=== PATIENT | male | born 1965 | race Caucasian/White ===

== ENCOUNTER → 2016-12-27 | Outpatient (CLI) | payer OTHER | END | disposition home or self-care (01) | LOC: LAB.O 13:32 | PROVIDERS: ATTEND Family Medicine | DX: R63.4 Abnormal weight loss (principal); E78.2 Mixed hyperlipidemia; E11.65 Type 2 diabetes mellitus with hyperglycemia ==

== ENCOUNTER → 2018-01-02 | Outpatient (CLI) | payer OTHER ==
--- NOTE | 2018-01-06 09:41 | RAD ---
EXAM DESCRIPTION: Pelvis CLINICAL HISTORY: HIP PAIN COMPARISON: January 16, 2010. Impression: Frontal view the pelvis. Since comparison, the patient has undergone reduction of the pubic symphysis diastases with compression plate and transfixing screws. No hardware loosening or failure is demonstrated. There is increased nonspecific sclerosis of the bone surrounding the hardware which may reflect chronic stress. Pelvic ring is otherwise intact. SI joints and sacral struts are maintained. Electronically signed by: Brennan Braswell MD 01/06/2018 9:39 AM CDT
--- NOTE | 2018-01-06 09:42 | RAD ---
EXAM DESCRIPTION: Hip,Right 2 Views CLINICAL HISTORY: HIP PAIN COMPARISON: None IMPRESSION: 2 views of the right hip. No acute fracture, dislocation or aggressive bone lesion is demonstrated within the right hip. No advanced osteoarthritis is present. If symptoms persist despite conservative management, consider MR arthrogram for further evaluation. Electronically signed by: Brennan Braswell MD 01/06/2018 9:41 AM CDT
== END ==
LOC: RAD 12:42
PROVIDERS: ATTEND Family Medicine
DX: M25.551 Pain in right hip (principal)

== ENCOUNTER 2018-04-03 07:18 | Inpatient (IN) | payer SELFPAY ==
[2018-04-03] MEDS ORDERED: SODIUM CHLORIDE 0.9% 1000ML 1,000 ML IVS ONE ×3 (07:35→15:31)
[2018-04-03] MEDS ORDERED: ONDANSETRON ODT 8 MG TAB SL ONE (07:35)
[2018-04-03] MEDS ORDERED: PROMETHAZINE HCL INJ 12.5 MG in SODIUM CHLORIDE 0.9% 50ML 50 ML IVPB ONE (07:35)
[2018-04-03] MEDS ORDERED: ONDANSETRON ODT (ER DISP) 8 MG TAB PO ONE (07:37)
[2018-04-03] MEDS ORDERED: SODIUM CHLORIDE 0.9% 50ML 50 ML ONE (07:39)
[2018-04-03] MEDS ORDERED: PROMETHAZINE HCL INJ 25 MG/ML VIAL ONE (07:39)
--- NOTE | 2018-04-03 08:05 | RAD ---
EXAM DESCRIPTION: Abdomen Series CLINICAL HISTORY: 52 years Male, nv, wt loss COMPARISON: None. TECHNIQUE: Supine and upright views abdomen, AP chest FINDINGS: Relative paucity of bowel gas. No specific evidence of intestinal obstruction. No free air is seen. No pathological calcifications identified. Nonspecific pleural-parenchymal changes right lung base, stable compared with October 16, 2012 chest computed tomography. IMPRESSION: Nonspecific bowel gas pattern. Nonspecific pleural-parenchymal changes right lung base Electronically signed by: Naman Garrido 04/03/2018 8:03 AM PRINTING SERVICES COORDINATOR
[2018-04-03] MEDS ORDERED: INSULIN, REG.(HUMAN) 100 U/ML VIAL IV ONE (08:24)
[2018-04-03] MEDS ORDERED: SODIUM CHL 0.9% 250ML (AVIVA) 250 ML IVPB ONE ×2 (08:33→20:52)
[2018-04-03] MEDS: INSULIN, REG.(HUMAN) 250 UNITS in SODIUM CHL 0.9% 250ML (AVIVA) 247.5 ML IVPB SCH ×4 (08:46→20:57)
[2018-04-03] MEDS ORDERED: SODIUM BICARBONATE SYRINGE 50 MEQ/50 ML SYG IV ONE ×2 (09:29→09:54)
[2018-04-03] MEDS ORDERED: INSULIN, REG.(HUMAN) 100 U/ML VIAL ONE ×2 (10:46→20:52)
[2018-04-03] MEDS ORDERED: DEX 5% W/NACL 0.45% 1000ML 1,000 ML IVS PRN (11:16)
--- NOTE | 2018-04-03 13:07 | ED.PDOC ---
History of Present Illness - General Chief Complaint: GI Problem Stated Complaint: vomiting Time Seen by Provider: 04/03/18 07:19 Source: patient Exam Limitations: no limitations - History of Present Illness Initial Comments: the patient is a 52-year-old male presenting to the emergency room essentially secondary to 24 hours of nausea and vomiting. On further questioning he has had significant weight loss of approximately 10 pounds over the last week. He has apparently not been taking his insulin for the last 3 or 4 days due to not having needles. No chest pain. He is pale. He is weak. He is alert and oriented however. He is ambulatory. No blood or bile in the vomitus. No abdominal pain just generalized cramping Timing/Duration: unsure Severity: severe Improving Factors: nothing Worsening Factors: nothing Associated Symptoms: loss of appetite, malaise, nausea/vomiting, weakness Allergies/Adverse Reactions: Allergies NO KNOWN ALLERGY Allergy (Verified 06/25/12 12:36) Home Medications: Ambulatory Orders Nortriptyline HCl 25 mg PO DAILY 06/09/12 Omeprazole [Prilosec] 40 mg PO BID 06/09/12 Tamsulosin [Flomax] 0.4 mg PO QD 06/09/12 Fluticasone-Salmeterol [Advair Diskus] 1 puff IN BID 06/10/12 Sitagliptin-Metformin HCl [Janumet 50-1000 mg] 1 tab PO BID 08/25/14 Naproxen Sodium [Anaprox Ds] 550 mg PO PRN 04/03/18 Review of Systems - Review of Systems Constitutional: States: malaise, weakness EENTM: States: no symptoms reported Respiratory: States: no symptoms reported Cardiology: States: no symptoms reported Gastrointestinal/Abdominal: States: nausea, vomiting Genitourinary: States: no symptoms reported Musculoskeletal: States: muscle stiffness Skin: States: no symptoms reported Neurological: States: headache Endocrine: States: increased urine, unexplained weight loss All other Systems: No Change from Baseline Past Medical History (General) - Patient Medical History Hx Seizures: No Hx Stroke: No Hx Asthma: Yes Hx of COPD: No Hx Cardiac Disorders: No Hx Congestive Heart Failure: No Hx Pacemaker: No Hx Hypertension: Yes Hx Diabetes: Yes Hx MRSA: No Surgical History: appendectomy - Vaccination History Hx Influenza Vaccination: No Hx Pneumococcal Vaccination: No - Social History Hx Tobacco Use: Yes Hx Alcohol Use: No Hx Substance Use: No Hx Physical Abuse: No Hx Emotional Abuse: No Family Medical History - Family History Father Family History: No Known Living Status: Still Living Physical Exam - Physical Exam General Appearance: Alert, Frail, Ill Appearing Eye Exam: bilateral normal Ears, Nose, Throat: hearing grossly normal, normal ENT inspection, normal pharynx - mucous membranes are fairly dry Neck: non-tender, full range of motion, supple Respiratory: lungs clear, normal breath sounds, no respiratory distress, no accessory muscle use Cardiovascular/Chest: normal peripheral pulses, regular rate, rhythm, no edema Peripheral Pulses: radial,right: 2+, radial,left: 2+ Gastrointestinal/Abdominal: non tender, soft Rectal Exam: deferred Back Exam: normal inspection, no CVA tenderness Neurologic: sand miller II-XII nml as tested, alert, oriented x 3 Skin Exam: pallor Comments: Vital Signs - 24 hr 04/03/18 04/03/18 04/03/18 07:25 08:54 10:00 Temperature 96.9 F L Pulse Rate [ 100 H 100 H 90 Left Brachial] Respiratory 18 20 16 Rate Blood Pressure 140/80 148/79 122/83 [Left Arm] O2 Sat by Pulse 100 100 99 Oximetry 04/03/18 04/03/18 11:00 12:00 Temperature Pulse Rate [ 98 H 100 H Left Brachial] Respiratory 16 16 Rate Blood Pressure 141/78 134/88 [Left Arm] O2 Sat by Pulse 100 100 Oximetry Progress - Progress Progress: 04/03/18 13:09 the patient is a 52-year-old male presenting to emergency room secondary to what appears to be DKA with significant dehydration. The patient has been started on insulin drip after a bolus. His blood sugars are improving. Patient had a significant anion gap as well as a pH of 7.06 upon arrival. He has received around 3 L of IV fluids and antibiotics. He is feeling and looking much better. PH is back up to 7.25. Anion gap is closing. The patient will be admitted for further continued management of his DKA. He has not thrown up since his arrival. Continue GI medications. Critical care time spent on management of DKA and discussion with the patient on his plan of care as well as arranging for further care is 40 minutes - Results/Orders Results/Orders: 04/03/18 08:30 Insulin, Reg.(Human) [HumuLIN R] 250 units Sodium Chl 0.9% 250Ml (Lulu) [NS 250ml (LULU)] 247.5 ml IVPB Q12H 04/03/18 09:10 URINE CULTURE W/COLONY COUNT Stat 04/03/18 11:16 Dex 5% W/NaCl 0.45% 1000ML [D5 1/2NS 1000ml] 1,000 ml IVS .QD Laboratory Results - last 24 hr 04/03/18 04/03/18 04/03/18 07:43 07:43 07:43 WBC 14.3 H RBC 5.93 Hgb 17.7 Hct 54.3 H MCV 91.6 MCH 29.8 MCHC 32.5 L RDW 13.8 Plt Count 315 MPV 8.3 Absolute Neuts (auto) 12.60 H Absolute Lymphs (auto) 1.20 Absolute Monos (auto) 0.40 Absolute Eos (auto) 0.00 Absolute Basos (auto) 0.10 Neutrophils % 88.2 H Lymphocytes % 8.7 L Monocytes % 2.6 Eosinophils % 0.0 L Basophils % 0.5 D-Dimer, Quantitative 0.43 pCO2 pO2 HCO3 ABG pH ABG O2 Saturation ABG Base Excess ABG Deoxyhemoglobin Oxyhemoglobin % Carboxyhemoglobin % Methemoglobin % Sat Calc Total Hemoglobin Sodium 131 L Potassium 6.1 H Chloride 99 L Carbon Dioxide 10 L* Anion Gap 28.1 H BUN 22 H Creatinine 1.20 BUN/Creatinine Ratio 18.3 POC Glucose Random Glucose 464 H* Serum Osmolality 285.6 Lactic Acid Calcium 9.5 Magnesium 2.3 Total Bilirubin 0.9 AST 16 ALT 23 Alkaline Phosphatase 106 Creatine Kinase 112 CK-MB (CK-2) 3.2 CK-MB (CK-2) % Not Reportable Troponin I < 0.02 B-Natriuretic Peptide < 0.5 Serum Total Protein 9.1 H Albumin 5.5 Globulin 3.6 H Albumin/Globulin Ratio 1.5 Amylase 16 L Lipase 15 L TSH 0.18 L Urine Color Urine Appearance Urine pH Ur Specific Orange Urine Protein Urine Glucose (UA) Urine Ketones Urine Blood Urine Nitrite Urine Bilirubin Urine Urobilinogen Ur Leukocyte Esterase Urine RBC Ur Epithelial Cells Amorphous Sediment Urine Bacteria Urine Opiates Screen Urine Barbiturates Ur Phencyclidine Scrn U Amphetamin/Meth Scrn U Benzodiazepines Scrn U Cocaine Metab Screen U Cannabinoids Screen 04/03/18 04/03/18 04/03/18 07:43 09:10 09:10 WBC RBC Hgb Hct MCV MCH MCHC RDW Plt Count MPV Absolute Neuts (auto) Absolute Lymphs (auto) Absolute Monos (auto) Absolute Eos (auto) Absolute Basos (auto) Neutrophils % Lymphocytes % Monocytes % Eosinophils % Basophils % D-Dimer, Quantitative pCO2 21 L pO2 132 H* HCO3 5.7 ABG pH 7.060 L* ABG O2 Saturation 97.9 ABG Base Excess -24.8 ABG Deoxyhemoglobin 2.0 Oxyhemoglobin % 95.5 Carboxyhemoglobin % 0.5 Methemoglobin % Sat 2.0 H Calc Total Hemoglobin 16.2 Sodium Potassium Chloride Carbon Dioxide Anion Gap BUN Creatinine BUN/Creatinine Ratio POC Glucose Random Glucose Serum Osmolality Lactic Acid 1.6 Calcium Magnesium Total Bilirubin AST ALT Alkaline Phosphatase Creatine Kinase CK-MB (CK-2) CK-MB (CK-2) % Troponin I B-Natriuretic Peptide Serum Total Protein Albumin Globulin Albumin/Globulin Ratio Amylase Lipase TSH Urine Color Urine Appearance Urine pH Ur Specific Orange Urine Protein Urine Glucose (UA) Urine Ketones Urine Blood Urine Nitrite Urine Bilirubin Urine Urobilinogen Ur Leukocyte Esterase Urine RBC Ur Epithelial Cells Amorphous Sediment Urine Bacteria Urine Opiates Screen Negative Urine Barbiturates Negative Ur Phencyclidine Scrn Negative U Amphetamin/Meth Scrn Negative U Benzodiazepines Scrn Negative U Cocaine Metab Screen Negative U Cannabinoids Screen Negative 04/03/18 04/03/18 04/03/18 09:10 10:00 11:05 WBC RBC Hgb Hct MCV MCH MCHC RDW Plt Count MPV Absolute Neuts (auto) Absolute Lymphs (auto) Absolute Monos (auto) Absolute Eos (auto) Absolute Basos (auto) Neutrophils % Lymphocytes % Monocytes % Eosinophils % Basophils % D-Dimer, Quantitative pCO2 pO2 HCO3 ABG pH ABG O2 Saturation ABG Base Excess ABG Deoxyhemoglobin Oxyhemoglobin % Carboxyhemoglobin % Methemoglobin % Sat Calc Total Hemoglobin Sodium Potassium Chloride Carbon Dioxide Anion Gap BUN Creatinine BUN/Creatinine Ratio POC Glucose 328 H 235 H Random Glucose Serum Osmolality Lactic Acid Calcium Magnesium Total Bilirubin AST ALT Alkaline Phosphatase Creatine Kinase CK-MB (CK-2) CK-MB (CK-2) % Troponin I B-Natriuretic Peptide Serum Total Protein Albumin Globulin Albumin/Globulin Ratio Amylase Lipase TSH Urine Color Yellow Urine Appearance Clear Urine pH 5.0 Ur Specific Orange 1.025 Urine Protein 30 Urine Glucose (UA) 500 H Urine Ketones >=160 Urine Blood Small H Urine Nitrite Negative Urine Bilirubin Negative Urine Urobilinogen 0.2 Ur Leukocyte Esterase Negative Urine RBC 0-1 Ur Epithelial Cells 0-1 Amorphous Sediment 1+ Urine Bacteria 0 Urine Opiates Screen Urine Barbiturates Ur Phencyclidine Scrn U Amphetamin/Meth Scrn U Benzodiazepines Scrn U Cocaine Metab Screen U Cannabinoids Screen 04/03/18 04/03/18 04/03/18 12:05 12:05 12:15 WBC RBC Hgb Hct MCV MCH MCHC RDW Plt Count MPV Absolute Neuts (auto) Absolute Lymphs (auto) Absolute Monos (auto) Absolute Eos (auto) Absolute Basos (auto) Neutrophils % Lymphocytes % Monocytes % Eosinophils % Basophils % D-Dimer, Quantitative pCO2 25 L pO2 101 HCO3 10.6 ABG pH 7.250 L* ABG O2 Saturation 97.9 ABG Base Excess -15.1 ABG Deoxyhemoglobin 2.1 Oxyhemoglobin % 95.6 Carboxyhemoglobin % 0.1 L Methemoglobin % Sat 2.3 H Calc Total Hemoglobin 14.7 Sodium 136 Potassium 4.5 Chloride 106 Carbon Dioxide 16 L D Anion Gap 18.5 H BUN 20 H Creatinine 1.11 BUN/Creatinine Ratio 18.0 POC Glucose 262 H Random Glucose 272 H D Serum Osmolality 284.2 Lactic Acid Calcium 8.8 Magnesium Total Bilirubin AST ALT Alkaline Phosphatase Creatine Kinase CK-MB (CK-2) CK-MB (CK-2) % Troponin I B-Natriuretic Peptide Serum Total Protein Albumin Globulin Albumin/Globulin Ratio Amylase Lipase TSH Urine Color Urine Appearance Urine pH Ur Specific Orange Urine Protein Urine Glucose (UA) Urine Ketones Urine Blood Urine Nitrite Urine Bilirubin Urine Urobilinogen Ur Leukocyte Esterase Urine RBC Ur Epithelial Cells Amorphous Sediment Urine Bacteria Urine Opiates Screen Urine Barbiturates Ur Phencyclidine Scrn U Amphetamin/Meth Scrn U Benzodiazepines Scrn U Cocaine Metab Screen U Cannabinoids Screen acute abdominal series shows no free air, no significant infiltrate and no obstruction. Departure - Departure Clinical Impression: Diabetic ketoacidosis Qualifiers: Diabetes mellitus type: type 1 Diabetes mellitus complication detail: without coma Qualified Code(s): E10.10 - Type 1 diabetes mellitus with ketoacidosis without coma Disposition: Admit Patient Departure Forms: ED Discharge - Pt. Copy, Patient Portal Self Enrollment Referrals: Arsalan Pak MD [Primary Care Provider] - 1-2 Weeks Home Medications: Ambulatory Orders Nortriptyline HCl 25 mg PO DAILY 06/09/12 Omeprazole [Prilosec] 40 mg PO BID 06/09/12 Tamsulosin [Flomax] 0.4 mg PO QD 06/09/12 Fluticasone-Salmeterol [Advair Diskus] 1 puff IN BID 06/10/12 Sitagliptin-Metformin HCl [Janumet 50-1000 mg] 1 tab PO BID 08/25/14 Naproxen Sodium [Anaprox Ds] 550 mg PO PRN 04/03/18 Decision To Admit - Decistion To Admit Decision to Admit Reason: Medical Nature Decision to Admit Date: 04/03/18 Decision to Admit Time: 13:11
--- NOTE | 2018-04-03 13:21 | HP ---
SUPERVISING PHYSICIAN: Arsalan Pak M.D. CHIEF COMPLAINT: Vomiting. HISTORY OF PRESENT ILLNESS: Mr. Dennison is a 52 year-old male patient that presented to the Emergency Room due to 24 hours of persistent nausea and vomiting. He noted over the last week he started having some nausea but yesterday essentially started having some vomiting nearly every hour and over that same week had lost about 10 pounds. He is a type 2 diabetic insulin requiring and normally is on Toujeo. He apparently had run out of needles for his Toujeo injections 4 days previously. He denied any chest pains, abdominal pains or generalized cramping. Initial workup in the E. R. showed that he had a blood sugar of 464 with potassium 6.1 and carbon dioxide 10 with anion gap of 28.1. Sodium was 131 but corrected to 135 for hyperglycemia. Liver functions all showed to be within normal limits. Lipase and amylase were both normal. TSH was low. Blood gas analysis showed pH of 7.06 initially with pCO2 of 21, pO2 of 132 and bicarb of 5.7 with base excess of 24.8. He was started on DKA protocol with insulin drip and fluids, and 4 hours post initiation of protocol pH was rechecked and his pH was up to 7.25 with pCO2 of 25 and anion gap had decreased to -15.1. The patient is now going to be admitted to the Medical/ Surgical floor for further treatment of diabetic ketoacidosis on insulin drip. He was admitted in stable condition. PAST MEDICAL HISTORY: 1. Type 2 diabetes, insulin requiring, diagnosed in 2010 currently taking Toujeo. 2. Hypertension first diagnosed in 2010. 3. Gastroesophageal reflux disease. 4. Benign prostatic hypertrophy. PAST SURGICAL HISTORY: 1. Repair of orbital fracture. 2. Ankle reconstructions times 3. 3. Two shoulder surgeries. 4. Thoracostomy. 5. Appendectomy. 6. Vasectomy. CURRENT MEDICATIONS: 1. Toujeo solostar 35 units at bedtime. 2. Avodart 0.5 mg at bedtime. 3. Spiriva handihaler 1 puff at bedtime. 4. Flomax 0.4 mg at bedtime. 5. Janumet 50-1,000 mg 1 tablet b.i.d. 6. Prilosec 40 mg b.i.d. 7. Nortriptyline 25 mg daily. 8. Anaprox 550 mg as needed. ALLERGIES: NO KNOWN DRUG ALLERGIES. FAMILY HISTORY: No history of type 1 diabetes or any significant autoimmune disease. SOCIAL HISTORY: REVIEW OF SYSTEMS: CONSTITUTIONAL: Positive for generalized fatigue and malaise. Denies any night sweats and has had an unintentional weight loss of over 10 pounds in the last week. HEENT: Denies any head congestion, sore throat, ear aches. CARDIOVASCULAR: Denies any chest pains, palpitations. PULMONARY: No shortness of breath, coughing or wheezing. GASTROINTESTINAL: As noted in history of present illness, has had nausea and persistent vomiting in the last 24 hours with no reported epigastric pain or real abdominal pains and any significant changes in bowel habits. GENITOURINARY: Denies any dysuria or hematuria but has had some polyuria over the last 4 days. NEUROLOGIC: Does have a headache but denies any dizziness, syncopal episodes, ataxia or seizures. HEMATOLOGIC: Denies any bleeding tendencies or easy bruising. PHYSICAL EXAMINATION: VITAL SIGNS: Temperature 96.9, pulse 100, blood pressure 140/80, respirations 18, satting 100% on room air. Admission weight 67.9 kg. GENERAL: The patient appears to be in no acute distress. He is alert and awake. Does look dehydrated and very thin. HEENT: Tympanic membranes are clear bilaterally. Oropharynx is pink with mucosal membranes being dry. No lesions noted. NECK: Supple, non-tender with full range of motion. No jugular venous distention. No adenopathy. CHEST: Lungs are clear to auscultation bilaterally without any rhonchi, wheezing or rales. CARDIOVASCULAR: Regular rate and rhythm without appreciable murmurs, gallops, or rubs. ABDOMEN: Soft, non-tender. Positive bowel sounds. EXTREMITIES: Without any clubbing, cyanosis or edema. NEUROLOGIC: He was alert and oriented times three. Cranial nerves II-XII are grossly intact. Facial features were symmetrical. Extraocular movements are within normal limits. There is no notable nystagmus. No focal motor or sensory deficits noted. LABORATORY: CBC on admission showed white count of 14,300 with hemoglobin 17.7 , hematocrit 54.3, platelet count 315,000. Differential did show a left shift but no bands. Coagulation studies showed a normal D-dimer. Blood gas analysis initially showed a pH of 7.06 with pCO2 of 21, bicarb of 5.7 and base excess of -24.8. After initial initiation of treatment with DKA protocol, a repeat of blood gas analysis 4 hours post treatment pH was at 7.25 with pCO2 of 25, pO2 was 101, bicarb of 10.6 with base excess of -15.1. Chemistries initially on admission showed sodium 131, corrected for glucose of 464 was 135, potassium 6.1 ,chloride 99, carbon dioxide 10, anion gap 20.1, BUN 22, creatinine 1.20. Liver functions all showed to be within normal limits. Troponin was less than 0.02. BNP was less than 0.5 and magnesium 2.3, lactic acid 1.6. Amylase and lipase were both normal. TSH was low at 0.18. Repeat labs after initiation of treatment at 4 hours showed sodium 136, glucose 272, potassium 4.5, carbon dioxide had increased to 16, anion gap was down to 18.5 with BUN 20, creatinine 1.11. Urinalysis showed 500 glucose, greater than 160 of ketones, small amount of blood, otherwise within normal limits. Toxicology screen showed all negative on urine on substances tested. Serum ketones on admission to the floor were showing to be small. MICROBIOLOGY: Urine culture was pending. RADIOLOGY: Abdominal x-ray in the E. R. prior to admission showed nonspecific bowel gas pattern. No specific pleural or parenchymal changes in the lung bases. ASSESSMENT: 1. Type 1.5 diabetes mellitus with ketoacidosis secondary to poor compliance with medication regimen and complicated by recent episode of persistent nausea and vomiting. 2. Severe dehydration secondary to #1. PLAN: The patient is going to be admitted to the Medical/Surgical floor and started on diabetic ketoacidosis protocol with insulin drip. Once he has shown to resolve DKA and no longer producing ketones and anion gap is closed, will work to start him on subcue insulin and get him off insulin drip and transition to p.o. intake. Will anticipate his length of stay to be at least 2 to 3 days. Will closely monitor his output and provide him adequate fluid resuscitation. Resume his home medication with long-acting insulin including his Toujeo once we get him off insulin drip. Until he can transition to outpatient management will continue to monitor closely and treat as needed. [id number] [facility]
[2018-04-03] MEDS ORDERED: ONDANSETRON INJ 4 MG/2 ML VIAL IV PRN (13:50)
[2018-04-03] MEDS ORDERED: SODIUM CHLORIDE 0.9% (FLUSH) 10 ML SYG IV PRN (13:50)
[2018-04-03] MEDS ORDERED: IV SET AND CAP CHANGE INJ INJ SCH (14:00)
[2018-04-03] MEDS ORDERED: KCL 20MEQ/0.45% NS 1,000 ML IVS ONE (15:13)
[2018-04-03] MEDS: KCL 20MEQ/0.45% NS 1,000 ML IVS PRN ×2 (15:14→20:48)
[2018-04-03] MEDS ORDERED: SODIUM CHLORIDE 0.9% 1000ML 1,000 ML ONE (15:28)
[2018-04-03] MEDS ORDERED: ACETAMINOPHEN 325 MG TAB PO PRN (15:50)
[2018-04-03] MEDS ORDERED: KCL 20MEQ/D5NS 1,000 ML IVS ONE ×2 (16:57→17:05)
[2018-04-03] MEDS ORDERED: KETOROLAC TROMETHAMINE INJ 30 MG/ML VIAL IV ONE (18:10)
[2018-04-03] MEDS ORDERED: INSULIN GLARGINE 35 UNIT SC SCH ×2 (18:15→19:15)
[2018-04-03] MEDS: NORTRIPTYLINE HCL 25 MG CAP PO SCH (18:43)
[2018-04-03] MEDS ORDERED: NICOTINE PATCH 14 MG TD PRN (18:46)
[2018-04-03] MEDS ORDERED: INSULIN LISPRO 100 UNITS/ML PEN SUBCU ONE (19:09)
[2018-04-03] MEDS ORDERED: OMEPRAZOLE CAP 20 MG CAP ONE (19:31)
[2018-04-03] MEDS ORDERED: ENOXAPARIN SODIUM 40 MG/0.4 ML SYG SUBCU SCH (21:00)
[2018-04-03] MEDS ORDERED: NON-FORMULARY MEDICATION 1 EA MIS (Tiotropium Bromide Monohydrate [Spiriva Handihaler] 1 P IN SCH (21:00)
[2018-04-03] MEDS ORDERED: OMEPRAZOLE 40 MG PO SCH (21:00)
[2018-04-03] MEDS ORDERED: DUTASTERIDE 0.5 MG CAP PO SCH (21:00)
[2018-04-03] MEDS ORDERED: TAMSULOSIN 0.4 MG CAP PO SCH (21:00)
[2018-04-03] MEDS ORDERED: DEXTROSE 50% 25 GM/50 ML SYG IV PRN (21:15)
[2018-04-03] MEDS ORDERED: GLUCAGON INJ 1 MG VIAL SUBCU PRN (21:15)
[2018-04-04] MEDS: KCL 20MEQ/0.45% NS 1,000 ML IVS PRN (02:11)
[2018-04-04 06:02] VITALS: BP 116/74; TEMP 98.4; O2SAT 97
[2018-04-04] MEDS ORDERED: INSULIN LISPRO 100 UNITS/ML PEN SUBCU SCH (07:00)
[2018-04-04] MEDS ORDERED: OMEPRAZOLE CAP 20 MG CAP ONE (07:18)
[2018-04-04] MEDS ORDERED: OMEPRAZOLE CAP 20 MG CAP PO SCH (08:30)
[2018-04-04] MEDS: NORTRIPTYLINE HCL 25 MG CAP PO SCH (08:40)
[2018-04-04] MEDS: metFORMIN HCL 500 MG TAB PO SCH ×2 (08:43→09:00)
[2018-04-04] MEDS ORDERED: SITagliptin 50 MG TAB PO SCH (09:00)
--- NOTE | 2018-04-05 11:20 | DS ---
ADMISSION DIAGNOSIS: 1. Type 1.5 diabetes mellitus with ketoacidosis secondary to poor compliance with medication regimen and complicated by recent episode of persistent nausea and vomiting. 2. Severe dehydration secondary to #1. DISCHARGE DIAGNOSIS: 1. Type 1.5 diabetes mellitus with ketoacidosis secondary to poor compliance with medication regimen and complicated by recent episode of persistent nausea and vomiting, resolved after treatment, aggressive DK protocol. 2. Severe dehydration secondary to #1, resolved with treatment. REASON FOR HOSPITALIZATION: Mr. Dennison is a 52 year-old male patient that presented to the Emergency Room due to 24 hours of persistent nausea and vomiting. He noted over the last week he started having some nausea but yesterday essentially started having some vomiting nearly every hour and over that same week had lost about 10 pounds. He is a type 2 diabetic insulin requiring and normally is on Toujeo. He apparently had run out of needles for his Toujeo injections 4 days previously. He denied any chest pains, abdominal pains or generalized cramping. Initial workup in the E. R. showed that he had a blood sugar of 464 with potassium 6.1 and carbon dioxide 10 with anion gap of 28.1. Sodium was 131 but corrected to 135 for hyperglycemia. Liver functions all showed to be within normal limits. Lipase and amylase were both normal. TSH was low. Blood gas analysis showed pH of 7.06 initially with pCO2 of 21, pO2 of 132 and bicarb of 5.7 with base excess of 24.8. He was started on DKA protocol with insulin drip and fluids, and 4 hours post initiation of protocol pH was rechecked and his pH was up to 7.25 with pCO2 of 25 and anion gap had decreased to -15.1. The patient is now going to be admitted to the Medical/ Surgical floor for further treatment of diabetic ketoacidosis on insulin drip. He was admitted in stable condition.] LABORATORY: Admitting chemistry showed he had initial blood sugar or 464 with potassium of 6.1, sodium 131, anion gap 28.1 with carbon dioxide of 10. Liver functions all showed to be within normal limits. TSH was low at 0.18 but lipase and amylase were both normal. Blood gas analysis did show a pH initially of 7.060. After 4 hours of treatment in the Emergency Room and prior to admission to the medical/surgical floor, the pH had gone up to 7.25 with initial pO2 of 21, bicarb of 5.7 and base excess of negative 24.8 with treatment. After 4 hours bicarb was at 10.6, PC02 was 25, base excess was down to negative 15.1. After initiation of treatment with DK protocol it did resolve and his DKA was no longer producing ketones, his blood sugars had been better controlled, we stopped the insulin drip and his blood sugars remained 12 hours prior to discharge between 95 and 286. On discharge his chemistries showed a sodium of 134 with glucose of 297 corrected to 135. BUN 15, creatinine 0.93, no longer producing ketones. Urinalysis showed 500 glucose, greater than 160 ketones, small amount of blood, otherwise within normal limits on initial presentation of urine in the Emergency Room. Urine drug screen showed to be all negative as tested. She had a small amount of ketones at 2800 , after initiation of treatment he was no longer producing serum ketones. His coagulation studies showed he had a D-dimer of 0.43. MICROBIOLOGY: Urine culture was pending at discharge. RADIOLOGY: Abdominal x-ray per radiology interpretation was unremarkable in the Emergency Room. His EKG was showing normal sinus rhythm with no significant ST changes. HOSPITAL COURSE: Mr. Dennison was admitted on for DKA and treated with DKA protocol and showed a good response to treatment and was able to be discharged on the morning of 04/04/18. He was tolerating oral intake and back on his home medications including his insulin. He had no complications to treatment and was able to transition to outpatient management. PLAN: Mr. Dennison was discharged on 04/04/18 with instructions to followup with Dr. Pak the following week with close clinical followup. He resumed his home medications as previous to hospitalization. He was encouraged fluids to prevent dehydration. He was to utilize a diabetic diet and monitor is blood sugars on a regular basis. No new medications were prescribed at discharge. DISPOSITION: Patient was discharged to family members and condition on discharge was stable and improved. [facility][id number]
== END 2018-04-04 09:22 | disposition home or self-care (01) | DRG 639 ==
LOC: ER 07:18 → MS 13:20
PROVIDERS: ADMIT Nurse Practitioner Family; ATTEND Nurse Practitioner Family
DX: E11.10 Type 2 diabetes mellitus with ketoacidosis without coma (principal); I10 Essential (primary) hypertension; K21.9 Gastro-esophageal reflux disease without esophagitis; N40.0 Benign prostatic hyperplasia without lower urinary tract symptoms; E86.0 Dehydration; Z79.4 Long term (current) use of insulin; R11.2 Nausea with vomiting, unspecified; Z91.14 Patient's other noncompliance with medication regimen

== ENCOUNTER 2018-07-07 17:04 | Inpatient (IN) | payer SELFPAY ==
[2018-07-07] MEDS ORDERED: SODIUM CHLORIDE 0.9% 1000ML 1,000 ML IVS ONE (17:15)
[2018-07-07] MEDS ORDERED: PROMETHAZINE HCL INJ 25 MG in SODIUM CHLORIDE 0.9% 50ML 50 ML IVPB ONE ×2 (17:15→20:28)
[2018-07-07] MEDS ORDERED: SODIUM CHLORIDE 0.9% 50ML 50 ML ONE ×2 (17:17→20:29)
[2018-07-07] MEDS ORDERED: PROMETHAZINE HCL INJ 25 MG/ML VIAL ONE ×2 (17:17→20:29)
[2018-07-07] MEDS ORDERED: DEX 5% W/NACL 0.9% 1000ML 1,000 ML IVS ONE (17:26)
[2018-07-07] MEDS: ONDANSETRON ODT 8 MG TAB SL ONE ×2 (17:48→17:50)
[2018-07-07] MEDS ORDERED: ONDANSETRON INJ 4 MG/2 ML VIAL ONE (18:49)
--- NOTE | 2018-07-07 19:14 | RAD ---
EXAM DESCRIPTION: Abdomen Series CLINICAL HISTORY: nv COMPARISON: 04/03/2018 FINDINGS: Frontal view of the chest and supine and upright images of the abdomen were submitted. There is a small region of atelectasis again seen at the right lung base. Cardiac silhouette is within normal limits. There is no focal parenchymal consolidation or pleural disease. Surgical hardware is again seen at the lower pelvis. There is no free air in the abdomen. There is no evidence of bowel obstruction. IMPRESSION: No acute abnormalities. Electronically signed by: Neville Lee 07/07/2018 7:10 PM ELECTRIC BLANKET PACKER
[2018-07-07] MEDS ORDERED: ONDANSETRON INJ 4 MG/2 ML VIAL IV ONE (19:23)
--- NOTE | 2018-07-07 20:27 | CT ---
EXAM DESCRIPTION: Abdomen/Pelvis w/Contrast CLINICAL HISTORY: nv COMPARISON: None Available TECHNIQUE: Contiguous axial images of the abdomen and pelvis were obtained after the administration of intravenous contrast followed by reconstruction images.This exam was performed according to our departmental dose-optimization program, which includes automated exposure control, adjustment of the mA and/or kV according to patient size and/or use of iterative reconstruction technique. FINDINGS: Surgical hardware at the pubic symphysis and involving each pubis limits pelvic detail. There is high attenuation in the urinary bladder, which is nonspecific. Mass or thrombus are possible. Proteinaceous materials also possible. Correlation with urinalysis is recommended and follow-up ultrasound is recommended. There is mild thickening of the wall of multiple loops of small bowel in the right and midabdomen. This suggests inflammation. Ischemia or neoplasm are less likely but not excluded. There is apparent fatty infiltration of the pancreas. Pancreatic detail is limited. Pancreatitis or pancreatic neoplasm are not excluded. There is apparent edema of the wall of the distal stomach and mild dilatation of the proximal duodenum suggesting inflammation. This however is nonspecific. There is mild to moderate dilatation of the distal transverse colon and splenic flexure. There is atelectasis and scar at the right lung base. There is no hydronephrosis. The gallbladder is unremarkable. Adrenal glands are within normal limits. Aorta is normal in caliber and tapering. No significant free fluid. No free air. No bowel obstruction. IMPRESSION: Pancreatic detail is limited. Sonography is recommended for further evaluation. Possible inflammation of the small bowel. Nonspecific increased attenuation in the mid urinary bladder but detail is limited by streak artifact. Sonography is recommended for further evaluation. See additional findings above. Electronically signed by: Neville Lee 07/07/2018 8:24 PM SOCIETY REPORTER
[2018-07-07] MEDS ORDERED: PANTOPRAZOLE SODIUM IV 40 MG VIAL IV ONE (20:33)
[2018-07-07] MEDS ORDERED: INSULIN DETEMIR 100 UNITS/ML PEN SUBCU ONE (21:20)
[2018-07-07] MEDS ORDERED: PROCHLORPERAZINE INJ 10 MG/2 ML VIAL IV ONE (21:20)
[2018-07-07] MEDS ORDERED: SUCRALFATE 1 GM/10 ML 1 GM UD PO ONE (21:21)
[2018-07-07] MEDS ORDERED: AZITHROMYCIN 250 MG TAB PO ONE (21:23)
[2018-07-07] MEDS ORDERED: metroNIDAZOLE IV PREMIX 500MG 500 MG in PREMIX BAG 1 BAG IVPB ONE (21:23)
[2018-07-07] MEDS ORDERED: metroNIDAZOLE IV PREMIX 500MG 100 ML IVPB ONE (21:27)
--- NOTE | 2018-07-07 21:35 | ED.PDOC ---
History of Present Illness - General Chief Complaint: GI Problem Stated Complaint: intractable vomiting Time Seen by Provider: 07/07/18 17:10 Source: patient Exam Limitations: no limitations - History of Present Illness Initial Comments: The patient a 53-year-old male presented to emergency room secondary to another episode of nausea and vomiting starting yesterday. The patient reports vomiting many times. No blood. There was some bile. No real constipation. No syncope or near syncope. He has not checked his blood sugar in quite a few days. He takes a long-acting insulin at night only. He has been unable to hold down any food. Initial glucose is 65 here. No fevers. He reports having had some gallbladder issues in the past. The last time we saw him here with nausea and vomiting he was in DKA. He has apparently taken some dicyclomine and Phenergan prior to arrival. He thinks that he probably threw those up. Timing/Duration: 24 hours Severity: moderate Improving Factors: nothing Worsening Factors: eating Associated Symptoms: loss of appetite, nausea/vomiting Allergies/Adverse Reactions: Allergies NO KNOWN ALLERGY Allergy (Verified 06/25/12 12:36) Home Medications: Ambulatory Orders Nortriptyline HCl 25 mg PO DAILY 06/09/12 Omeprazole [Prilosec] 40 mg PO BID 06/09/12 Tamsulosin [Flomax] 0.4 mg PO BEDTIME 06/09/12 Sitagliptin-Metformin HCl [Janumet 50-1000 mg] 1 tab PO BID 08/25/14 Dutasteride [Avodart] 0.5 mg PO BEDTIME 04/03/18 Naproxen Sodium [Anaprox Ds] 550 mg PO PRN 04/03/18 Tiotropium [place] Monohydrate [Spiriva Handihaler] 1 puff IN BEDTIME 04/03/18 Dicyclomine HCl 20 mg PO Q6HR PRN 07/07/18 Promethazine HCl 25 mg PO Q6HR PRN 07/07/18 Review of Systems - Review of Systems Constitutional: States: malaise EENTM: States: no symptoms reported Respiratory: States: no symptoms reported Cardiology: States: no symptoms reported Gastrointestinal/Abdominal: States: nausea, vomiting - no focal pain just generalized discomfort Genitourinary: States: no symptoms reported Musculoskeletal: States: no symptoms reported Skin: States: no symptoms reported Neurological: States: anxiety Endocrine: States: no symptoms reported All other Systems: No Change from Baseline Past Medical History (General) - Patient Medical History Hx Seizures: No Hx Stroke: No Hx Asthma: Yes Hx of COPD: No Hx Cardiac Disorders: No Hx Congestive Heart Failure: No Hx Pacemaker: No Hx Hypertension: Yes Hx Diabetes: Yes Hx MRSA: No Surgical History: appendectomy, other - Vaccination History Hx Influenza Vaccination: No Hx Pneumococcal Vaccination: No - Social History Hx Tobacco Use: Yes Hx Alcohol Use: No Hx Substance Use: No Hx Physical Abuse: No Hx Emotional Abuse: No Family Medical History - Family History Father Family History: No Known Living Status: Still Living Physical Exam - Physical Exam General Appearance: Alert, Other - vomiting Eye Exam: bilateral normal Ears, Nose, Throat: hearing grossly normal, normal ENT inspection Neck: full range of motion, supple Respiratory: lungs clear, normal breath sounds, no respiratory distress, no accessory muscle use Cardiovascular/Chest: normal peripheral pulses, no edema, other - regular rate Peripheral Pulses: radial,right: 2+, radial,left: 2+, dorsalis pedis,right: 2+, dorsalis pedis,left: 2+ Gastrointestinal/Abdominal: soft - diffuse discomfort to palpation but no palpable mass and no point tenderness. Rectal Exam: deferred Back Exam: no CVA tenderness, no vertebral tenderness Extremity: normal range of motion, non-tender, normal inspection, no pedal edema, normal capillary refill Neurologic: vocational rehabilitation administrator II-XII nml as tested, alert, normal mood/affect, oriented x 3 Skin Exam: normal color Comments: Vital Signs - 24 hr 07/07/18 07/07/18 17:11 20:34 Temperature 98.9 F Pulse Rate [ 84 81 left brachial] Respiratory 20 16 Rate Blood Pressure 151/88 138/76 [left brachial] O2 Sat by Pulse 99 99 Oximetry Progress - Progress Progress: 07/07/18 21:36 the patient is a 53-year-old male presenting secondary to a days worth of nausea and vomiting. He does have a mild alkalosis that is likely due to the vomiting. He has received 2 doses of IV Phenergan as well as a dose of Zofran and is receiving a dose of Compazine to help control it. No evidence of bowel obstruction or perforation. CT scan does seem to indicate inflammation of the distal stomach and the duodenum. It is possible and even likely that the patient does have some component of diabetic gastroparesis. He has apparently had episodes of nausea and vomiting in the past that have been problematic. The patient is also receiving some Protonix and Carafate to help reduce stomach acid. I'm going to place the patient on IV azithromycin and metronidazole to help control any infectious component of the gastritis and duodenitis such as with Helicobacter pylori. A stool study for H. pylori may be beneficial. This is however a send out lab. The patient is receiving a small dose of Levemir currently primarily to prevent ketoacidosis. He is receiving D5 half ns currently. Glucose is pending at this time but have been well controlled so far. Consideration could be given towards using Reglan on this patient. Laboratory work is otherwise largely reassuring. No evidence of lactic acidosis. Admit for continued care of uncontrolled nausea and vomiting with resultant mild metabolic alkalosis. - Results/Orders Results/Orders: 07/07/18 17:14 Telemetry .CONTINUOUS 07/07/18 17:26 Dex 5% W/NaCl 0.9% 1000ML [D5 NS 1000ml] 1,000 ml IVS ONCE 07/07/18 19:41 CT scan abdomen and pelvis show no evidence of any obstruction. There is inflammation of the distal stomach and duodenum. No evidence of any gallbladder or liver pathology. No evidence of any perforation. Laboratory Results - last 24 hr 07/07/18 07/07/18 07/07/18 17:20 17:24 17:24 WBC 13.0 H RBC 5.33 Hgb 15.9 Hct 47.2 MCV 88.4 MCH 29.8 MCHC 33.7 RDW 13.2 Plt Count 314 MPV 7.2 L Absolute Neuts (auto) 10.70 H Absolute Lymphs (auto) 1.60 Absolute Monos (auto) 0.70 Absolute Eos (auto) 0.00 Absolute Basos (auto) 0.10 Neutrophils % 81.8 H Lymphocytes % 12.1 L Monocytes % 5.0 Eosinophils % 0.2 L Basophils % 0.9 pCO2 pO2 HCO3 ABG pH ABG O2 Saturation ABG Base Excess ABG Deoxyhemoglobin Oxyhemoglobin % Carboxyhemoglobin % Methemoglobin % Sat Calc Total Hemoglobin Sodium 138 Potassium 3.4 L Chloride 103 Carbon Dioxide 24 Anion Gap 14.4 BUN 10 Creatinine 0.55 L BUN/Creatinine Ratio 18.2 POC Glucose 65 L Random Glucose 78 Serum Osmolality 273.6 L Lactic Acid Calcium 9.5 Magnesium Total Bilirubin 0.7 AST 20 ALT 19 Alkaline Phosphatase 69 Creatine Kinase 144 CK-MB (CK-2) 2.5 CK-MB (CK-2) % 1.74 Troponin I < 0.02 B-Natriuretic Peptide 7.8 Serum Total Protein 7.7 Albumin 4.3 Globulin 3.4 Albumin/Globulin Ratio 1.3 Amylase 28 Lipase Urine Color Urine Appearance Urine pH Ur Specific [place] Urine Protein Urine Glucose (UA) Urine Ketones Urine Blood Urine Nitrite Urine Bilirubin Urine Urobilinogen Ur Leukocyte Esterase Urine RBC Urine WBC Ur Epithelial Cells Urine Bacteria 07/07/18 07/07/18 07/07/18 17:24 17:24 17:45 WBC RBC Hgb Hct MCV MCH MCHC RDW Plt Count MPV Absolute Neuts (auto) Absolute Lymphs (auto) Absolute Monos (auto) Absolute Eos (auto) Absolute Basos (auto) Neutrophils % Lymphocytes % Monocytes % Eosinophils % Basophils % pCO2 24 L pO2 81 L HCO3 20.2 ABG pH 7.530 H ABG O2 Saturation 98.1 ABG Base Excess -0.7 ABG Deoxyhemoglobin 1.8 Oxyhemoglobin % 92.1 L Carboxyhemoglobin % 4.8 H Methemoglobin % Sat 1.4 Calc Total Hemoglobin 13.2 L Sodium Potassium Chloride Carbon Dioxide Anion Gap BUN Creatinine BUN/Creatinine Ratio POC Glucose Random Glucose Serum Osmolality Lactic Acid 1.2 Calcium Magnesium 1.7 L Total Bilirubin AST ALT Alkaline Phosphatase Creatine Kinase CK-MB (CK-2) CK-MB (CK-2) % Troponin I B-Natriuretic Peptide Serum Total Protein Albumin Globulin Albumin/Globulin Ratio Amylase Lipase 18 L Urine Color Urine Appearance Urine pH Ur Specific [place] Urine Protein Urine Glucose (UA) Urine Ketones Urine Blood Urine Nitrite Urine Bilirubin Urine Urobilinogen Ur Leukocyte Esterase Urine RBC Urine WBC Ur Epithelial Cells Urine Bacteria 07/07/18 07/07/18 07/07/18 18:20 19:35 19:49 WBC RBC Hgb Hct MCV MCH MCHC RDW Plt Count MPV Absolute Neuts (auto) Absolute Lymphs (auto) Absolute Monos (auto) Absolute Eos (auto) Absolute Basos (auto) Neutrophils % Lymphocytes % Monocytes % Eosinophils % Basophils % pCO2 pO2 HCO3 ABG pH ABG O2 Saturation ABG Base Excess ABG Deoxyhemoglobin Oxyhemoglobin % Carboxyhemoglobin % Methemoglobin % Sat Calc Total Hemoglobin Sodium Potassium Chloride Carbon Dioxide Anion Gap BUN Creatinine BUN/Creatinine Ratio POC Glucose 91 129 H D Random Glucose Serum Osmolality Lactic Acid Calcium Magnesium Total Bilirubin AST ALT Alkaline Phosphatase Creatine Kinase CK-MB (CK-2) CK-MB (CK-2) % Troponin I B-Natriuretic Peptide Serum Total Protein Albumin Globulin Albumin/Globulin Ratio Amylase Lipase Urine Color Yellow Urine Appearance Clear Urine pH >= 9.0 H* Ur Specific [place] 1.020 Urine Protein Trace Urine Glucose (UA) Negative Urine Ketones 80 H Urine Blood Negative Urine Nitrite Negative Urine Bilirubin Negative Urine Urobilinogen 0.2 Ur Leukocyte Esterase Negative Urine RBC 1-3 Urine WBC 1-3 Ur Epithelial Cells 1-3 Urine Bacteria 0 Departure - Departure Clinical Impression: Insulin dependent diabetes mellitus, Metabolic alkalosis Nausea and vomiting Qualifiers: Vomiting type: cyclical vomiting Vomiting Intractability: non-intractable Qualified Code(s): G43.A0 - Cyclical vomiting, not intractable Disposition: Admit Patient Departure Forms: ED Discharge - Pt. Copy, Patient Portal Self Enrollment Referrals: Arsalan Pak MD [Primary Care Provider] - 1-2 Weeks Home Medications: Ambulatory Orders Nortriptyline HCl 25 mg PO DAILY 06/09/12 Omeprazole [Prilosec] 40 mg PO BID 06/09/12 Tamsulosin [Flomax] 0.4 mg PO BEDTIME 06/09/12 Sitagliptin-Metformin HCl [Janumet 50-1000 mg] 1 tab PO BID 08/25/14 Dutasteride [Avodart] 0.5 mg PO BEDTIME 04/03/18 Naproxen Sodium [Anaprox Ds] 550 mg PO PRN 04/03/18 Tiotropium [place] Monohydrate [Spiriva Handihaler] 1 puff IN BEDTIME 04/03/18 Dicyclomine HCl 20 mg PO Q6HR PRN 07/07/18 Promethazine HCl 25 mg PO Q6HR PRN 07/07/18 Decision To Admit - Decistion To Admit Decision to Admit Reason: Medical Nature Decision to Admit Date: 07/07/18 Decision to Admit Time: 21:42
[2018-07-07] MEDS ORDERED: SODIUM CHLORIDE 0.9% (FLUSH) 10 ML SYG IV PRN (23:31)
[2018-07-07] MEDS ORDERED: GLUCAGON INJ 1 MG VIAL SUBCU PRN (23:37)
[2018-07-07] MEDS ORDERED: DEXTROSE 50% 25 GM/50 ML SYG IV PRN (23:37)
[2018-07-07] MEDS ORDERED: IV SET AND CAP CHANGE INJ INJ SCH (23:45)
[2018-07-07] MEDS ORDERED: PROMETHAZINE HCL INJ 25 MG in SODIUM CHLORIDE 0.9% 50ML 50 ML IVPB PRN (23:51)
[2018-07-07] MEDS ORDERED: MAGNESIUM SULFATE PREMIX 2GM 2 GM in PREMIX BAG 1 BAG IVPB ONE (23:59)
[2018-07-08] MEDS: INSULIN LISPRO 100 UNITS/ML PEN SUBCU SCH ×3 (00:15→12:25)
[2018-07-08] MEDS ORDERED: MAGNESIUM SULFATE PREMIX 2GM 50 ML IVPB ONE (00:34)
[2018-07-08] MEDS ORDERED: PROMETHAZINE HCL INJ 25 MG/ML VIAL ONE (00:38)
[2018-07-08] MEDS ORDERED: SODIUM CHLORIDE 0.9% 50ML 50 ML ONE (00:39)
[2018-07-08] MEDS: KCL 30MEQ/D5 1/2NS 1,000 ML IVS PRN ×2 (00:45→08:37)
[2018-07-08] MEDS ORDERED: OMEPRAZOLE 40 MG PO SCH (09:45)
[2018-07-08] MEDS ORDERED: NORTRIPTYLINE HCL 25 MG CAP PO SCH (10:00)
--- NOTE | 2018-07-08 12:00 | US ---
EXAM DESCRIPTION: Abdomen,Limited: ULTRASOUND. CLINICAL HISTORY: diffuse abdominal pain ;n/v COMPARISON: CT abdomen and pelvis 07/07/2018. TECHNIQUE: Transabdominal scannin-dimensional and Doppler modes. FINDINGS: Gallbladder: normal size, shape, echogenicity; no intraluminal stones or sludge. No fluid around the gallbladder. No wall thickening. 1.1 mm. Non-tender with transducer pressure. Common bile duct: caliber 2.4 mm within normal limits. Liver: Heterogeneously minimally increased echogenicity; contour liver capsule smooth where seen. No fluid around the liver. Intrahepatic biliary ducts normal caliber. Doppler hepatopedal flow and normal caliber portal vein.. Hepatofugal flow and normal caliber hepatic vein. Long axis right lobe 17.4 cm. Pancreas: normal size and echogenicity. Duct not seen. Proximal abdominal aorta: Normal caliber along with mid segment. Distal segment obscured by intestinal gas.. IVC: visualized and normal caliber. Right kidney: long axis measures 12.0 cm. Normal Echogenicity. 12 mm cortical thickness. Possible trace hydronephrosis with fullness of the right hilum and pelvis. IMPRESSION: 1. Steatosis of the liver with mild enlargement. Normal ducts in vascularity. Smooth capsule and no ascites. 2. Gallbladder and common bile duct unremarkable. Pancreas is negative. 3. Normal caliber of the proximal and mid segment of the aorta and the IVC. 4. Trace hydronephrosis right kidney with fullness of the right hilum and pelvis. Proximal right ureter not seen. Electronically signed by: Neville Maier MD 07/08/2018 11:57 AM KNOCK UP ASSEMBLER
[2018-07-08 14:07] VITALS: BP 101/58; TEMP 98.3; O2SAT 97
--- NOTE | 2018-07-08 18:07 | SSS ---
SUPERVISING PHYSICIAN: Arsalan Pak M.D. CHIEF COMPLAINT: Nausea, vomiting and abdominal pain. HISTORY OF PRESENT ILLNESS: Mr. Dennison is a 53 year-old male patient that presented to the Emergency Room late last night complaining of nausea and vomiting that started the day before. He has had a history of frequent visits to the E. R. due to similar symptoms. Describes no real constipation, syncope or syncopal episodes. He is a diabetic but reports that his blood sugars have been fairly well controlled. In the E. R. initially his blood sugars were showing to be 65 and he was afebrile. He was reporting that every time he eats he is unable to hold any food down. He tried to take some oral medications, including Phenergan and dicyclomine which he later threw up. He is not showing any signs of diabetic ketoacidosis. Laboratory showed he had a white count of 13,000 with a left shift. Blood gas analysis showed a pH of 7.53 with bicarb of 20, satting 98% on room air showing a pO2 of 81 and pCO2 of 24. Chemistries initially on admission showed just a mildly low potassium at 3.4, glucose 65, recheck is 78. Liver functions were all showing to be within normal limits. Magnesium was slightly low at 1.7. Lactic acid was normal at 1.2, lipase was normal at 18. Abdominal/pelvis CT with contrast per radiology interpretation showed possible inflammation of the small bowel. Nonspecific increased attenuation in the mid urinary bladder. Recommended further followup with sonography studies. The gallbladder was noted to be unremarkable. No mention of bowel obstruction. He was finally given Phenergan and Compazine and had improvement of his symptoms, and then was admitted in observation for further treatment and evaluation. PAST MEDICAL HISTORY: 1. Type 2 diabetes, insulin requiring, first diagnosed in 2010 on oral therapy only, having previously been on Toujeo. 2. Hypertension, first diagnosed in 2010. 3. Gastroesophageal reflux disease. 4. Benign prostatic hypertrophy. PAST SURGICAL HISTORY: 1. Repair of right orbital fracture. 2. Ankle reconstruction 3 times. 3. Two shoulder surgeries. 4. Thoracotomy. 5. Appendectomy. 6. Vasectomy. HOME MEDICATIONS: 1. Spiriva handihaler, 1 puff at bedtime. 2. Flomax 0.4 mg at bedtime. 3. Janumet 50-1,000 mg 1 b.i.d. 4. Omeprazole 40 mg b.i.d. 5. Nortriptyline 25 mg daily. 6. Anaprox 550 mg as needed. 7. Avodart 0.5 mg at bedtime. 8. Dicyclomine 20 mg every 6 hours as needed. ALLERGIES: NO KNOWN DRUG ALLERGIES. FAMILY HISTORY: No history of type 1 diabetes or any significant autoimmune diseases. 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 He is . He is a previous smoker. Lives in [place] and drinks alcohol on a rare occasion. REVIEW OF SYSTEMS: CONSTITUTIONAL: Positive for general malaise. Negative for any chills, fevers or unintentional weight loss. HEENT: Negative for any nasal congestion, ear aches, sore throats, vision disturbances, ear aches. RESPIRATORY: Negative for coughing, wheezing or shortness of breath. HEART: Negative for any chest pains, palpitations or syncopal episodes. GASTROINTESTINAL: As noted on History of Present Illness, positive for nausea and vomiting. GENITOURINARY: Denies any dysuria, hematuria or polyuria. NEUROLOGIC: Negative for any seizures, ataxia or syncopal episodes, or other neurological deficits. PHYSICAL EXAMINATION: VITAL SIGNS: Initially in the E. R. showed that he has a temperature prior to admission of 99.9, pulse 93, blood pressure 141/88, respirations 20, satting 96% on room air. Weight 72.4 kg. GENERAL: The patient appeared to be comfortable in no acute distress at time of exam. He is alert. HEENT: NECK: CHEST: Lungs are clear to auscultation bilaterally without any rhonchi, wheezing or rales. CARDIOVASCULAR: Regular rate and rhythm without appreciable murmurs, gallops, or rubs. ABDOMEN: Soft, non-tender. Positive bowel sounds. No rebound tenderness. No point tenderness. EXTREMITIES: Without any cyanosis, clubbing, or edema. NEUROLOGIC: He is alert and oriented times three. LABORATORY: Initially showed he had white count of 13,000, at discharge was 13,100. Hemoglobin and hematocrit showed to be 14.6 and 43.2 at discharge with differential showing an early left shift. Blood gas analysis showed a metabolic alkalosis with a pH of 7.53, pCO2 was 24, pO2 was 81, bicarb 20, saturation of 98%. Chemistries showed potassium was slightly low on admission at 3.4, otherwise electrolytes were normal, BUN 10, creatinine 0.5. Initial glucose 65, after initiation of treatment with D5 IV infusion and long-acting insulin blood sugars responded from 91 to 129 prior to admission. Serum osmolality was 273 initially with lactic acid of 1.2. Magnesium was low at 1.7, calcium at 9.5. All other liver functions were all showing to be within normal limits. Amylase was normal but lipase was low at 18. Urinalysis showed greater than 9 pH with 80 of ketones, otherwise within normal limits. MICROBIOLOGY: No specimens were submitted. RADIOLOGY: Initially had an abdominal x-ray in the E. R. per radiology interpretation showed no acute abnormalities. This was followed-up with a CT of the abdomen and pelvis and per radiology interpretation there was noted limited detail of the pancreas. There was also note of possible inflammation of the small bowel, but nonspecific increased attenuation of the mid urinary bladder. Recommend both sonography of the bladder and the kidneys. This was followed-up with an ultrasound of the pelvis which showed steatosis of the liver with mild enlargement and normal ducts. The gallbladder and common bile duct were unremarkable. The pancreas was noted to be negative. Please see that report for full details. ASSESSMENT: 1. Persistent nausea and vomiting, intractable, uncertain etiology. Possibly related to some gastroparesis with the patient responding to fluids with no signs of diabetic ketoacidosis. 2. [id number] diabetes mellitus type 2. 3. Severe dehydration secondary to #1, resolving with fluids. 4. Metabolic alkalosis secondary to dehydration and gastric loss of base secondary to persistent nausea and vomiting, resolving with fluids. HOSPITAL COURSE: The patient was admitted from the E. . overnight for close observation for persistent nausea and vomiting. He was provided IV fluids. He was made NPO for a short period of time with bowel rest and was showing good clinical improvement. Labs have been repeated showing no significant abnormalities and the patient was feeling much better with no abdominal pain, and was actually tolerating an ADA diet. It was felt that he demonstrated clinical improvement well enough to continue with outpatient management. PLAN: Mr. Dennison was discharged to followup with Dr. aPk, his primary care provider. He was provided a prescription for antiemetics, includin. Phenergan suppositories 25 mg every 4 hours as needed, #12, no refills. 2. Reglan 5 mg p.o. as needed for nausea and vomiting, #10, no refills. All other medicines were continued as prior to hospitalization. Condition on discharge was stable and improving. DISPOSITION: The patient was discharged home to the care of family. #[id number] [facility]
[2018-07-08] MEDS ORDERED: NON-FORMULARY MEDICATION 1 EA MIS (Tiotropium Bromide Monohydrate [Spiriva Handihaler] 1 P IN SCH (21:00)
[2018-07-08] MEDS ORDERED: NON-FORMULARY MEDICATION 1 EA MIS (Sitagliptin-Metformin Hcl [Janumet 50-1000 Mg] 1 TAB) PO SCH (21:00)
[2018-07-08] MEDS ORDERED: TAMSULOSIN 0.4 MG CAP PO SCH (21:00)
[2018-07-08] MEDS ORDERED: DUTASTERIDE 0.5 MG CAP PO SCH (21:00)
== END 2018-07-08 16:42 | disposition home or self-care, planned readmission (81) | DRG 74 ==
LOC: ER 17:04 → MS 22:22 → OBSVTOIN 22:22
PROVIDERS: ADMIT Nurse Practitioner Family; ATTEND Nurse Practitioner Family
DX: E11.43 Type 2 diabetes mellitus with diabetic autonomic (poly)neuropathy (principal); E87.3 Alkalosis; K31.84 Gastroparesis; E86.0 Dehydration; I10 Essential (primary) hypertension; J45.909 Unspecified asthma, uncomplicated; K21.9 Gastro-esophageal reflux disease without esophagitis; N40.0 Benign prostatic hyperplasia without lower urinary tract symptoms; Z79.4 Long term (current) use of insulin; Z87.891 Personal history of nicotine dependence; Z79.899 Other long term (current) drug therapy; Z79.1 Long term (current) use of non-steroidal anti-inflammatories (NSAID)

== ENCOUNTER 2019-11-27 09:52 | Emergency (ER) | payer BC ==
--- NOTE | 2019-11-27 09:57 | ED.PDOC ---
History of Present Illness - General Time Seen by Provider: 11/27/19 09:56 Source: patient - History of Present Illness Initial Comments: 54-year-old male with PMH of hypertension, GERD who presents with chief complaint of left foot and ankle pain following injury at work just prior to arrival. 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 Reports constant dull 6/10 severity pain to the left heel which radiates to the left lateral ankle, worse with palpation or any range of motion of the ankle or foot, reports moderate swelling to the ankle, no medications taken for relief. Denies any weakness or numbness or noted deformity. Denies any other injuries. Allergies/Adverse Reactions: Allergies NO KNOWN ALLERGY Allergy (Verified 11/27/19 10:13) Home Medications: Ambulatory Orders Nortriptyline HCl 25 mg PO DAILY 06/09/12 Omeprazole [Prilosec] 40 mg PO BID 06/09/12 Tamsulosin [Flomax] 0.4 mg PO BEDTIME 06/09/12 Sitagliptin-Metformin HCl [Janumet 50-1000 mg] 1 tab PO BID 08/25/14 Dutasteride [Avodart] 0.5 mg PO BEDTIME 04/03/18 Naproxen Sodium [Anaprox Ds] 550 mg PO PRN 04/03/18 Tiotropium [place] Monohydrate [Spiriva Handihaler] 1 puff IN BEDTIME 04/03/18 Dicyclomine HCl [Dicyclomine Hydrochloride] 20 mg PO Q6HR PRN 07/07/18 Promethazine HCl 25 mg PO Q6HR PRN 07/07/18 Metoclopramide Tab [Reglan Tab] 5 mg PO Q8HRS PRN #10 tab 07/08/18 Promethazine HCl 25 mg ID Q4HR PRN #12 sup 07/08/18 Acetaminophen W/ Codeine [Tylenol W/ CODEINE #3] 1 ea PO Q6H PRN 10 Days #15 11/27/19 Review of Systems - Review of Systems Review of Systems: 11/27/19 10:11 As per HPI All other Systems: Reviewed and Negative Past Medical History (General) - Patient Medical History Hx Seizures: No Hx Stroke: No Hx Asthma: Yes Hx of COPD: No Hx Cardiac Disorders: No Hx Congestive Heart Failure: No Hx Pacemaker: No Hx Hypertension: No Hx Diabetes: Yes Hx MRSA: No - Vaccination History Hx Influenza Vaccination: No Hx Pneumococcal Vaccination: No - Social History Hx Tobacco Use: Yes Hx Alcohol Use: No Hx Substance Use: No Hx Physical Abuse: No Hx Emotional Abuse: No Family Medical History - Family History Father Family History: No Known Living Status: Still Living Hx Family Congestive Heart Failure: No Hx Family Hypertension: No Hx Family Stroke: No Hx Cardiac Disease: No Hx Family Diabetes: No Hx Family Cancer: Yes Mother Living Status: Still Living Hx Family;Other: IBS Physical Exam - Physical Exam General Appearance: Alert, No apparent distress Eyes, Ears, Nose, Throat: PERRL/EOMI, normal ENT inspection, pharynx normal Neck: non-tender, full range of motion, supple, normal inspection Cardiovascular/Respiratory: regular rate, rhythm, no M/R/G, normal peripheral pulses, no JVD, normal breath sounds, no respiratory distress Gastrointestinal/Abdominal: non-tender, no organomegaly Back: normal inspection, no CVA tenderness, no vertebral tenderness Thigh/Hip: normal inspection, non-tender, no evidence of injury, normal ROM Leg: normal inspection, non-tender, no evidence of injury, normal ROM Knee: normal inspection, non-tender, no evidence of injury, normal ROM Ankle: other - Left ankle with moderate swelling to the lateral aspect and bruising with marketed lateral malleoli or tenderness to palpation, markedly reduced range of motion due to pain Foot: other - Left foot without gross deformity or swelling or bruising upon inspection. The left plantar aspect of the heel is markedly tender to palpation throughout Neuro/Tendon: normal sensation, normal motor functions, normal tendon functions, no evidence tendon injury Mental Status: alert, oriented x 3 Skin: normal color, warm/dry Progress - Progress Progress: 11/27/19 10:13 Fall from height with left foot and ankle pain -Consider left heel fracture, left ankle fracture, other foot/ankle fractures, ankle sprain, other -Patient stable, 6/10 pain -Obtain x-rays of the left foot and ankle, apply cold pack, Bouse 10 and Toradol 60 mg IM for pain 11/27/19 13:23 -Patient reexamined, reports pain much improved, remained stable. -X-ray of the left ankle revealed longitudinally oriented left distal tibial fracture. X-ray of the left foot revealed question of nondisplaced fracture of the calcaneus. Follow-up CT scan of the left ankle and foot confirmed nondisplaced posterior calcaneal fracture that does not extend into the joint space. -I spoke with Dr. cantrell, orthopedic surgery, who reviewed the images and recommended to put the patient in a splint and make him nonweightbearing to the left lower extremity and have him follow-up with orthopedic surgery clinic next week. Discussed all of this with the patient. Splint placed. All questions answered. We will also send home with Tylenol 3 prescription for breakthrough pain. -Discharged home in good condition, return warnings discussed. Christoph Yao MD Billing #[id number] Procedures - Splinting Left Leg Hand-Made Type: orthoglass Splint: Posterior lower leg Pre-Proc Neuro Vasc Exam: normal Post-Proc Neuro Vasc Exam: normal Departure - Departure Clinical Impression: Closed left tibial fracture Qualifiers: Encounter type: initial encounter Tibia location: distal Fracture morphology: other fracture Qualified Code(s): S82.392A - Other fracture of lower end of left tibia, initial encounter for closed fracture Left calcaneal fracture Qualifiers: Encounter type: initial encounter Calcaneus location: unspecified portion of calcaneus Fracture type: closed Fracture alignment: nondisplaced Qualified Code(s): S92.002A - Unspecified fracture of left calcaneus, initial encounter for closed fracture Time of Disposition: 13:18 Disposition: Discharge to Home or Self Care Condition: Good Instructions: Ankle Fracture (DC), Heel Fracture (DC) Diet: resume usual diet Activity: other - No weightbearing to the left lower extremity until cleared by Ortho Referrals: Arsalan Pak MD [Primary Care Provider] - 1-2 Weeks Michele Cantrell MD [Active Staff] - 1 Week Prescriptions: Acetaminophen W/ Codeine [Tylenol W/ CODEINE #3] 1 ea PO Q6H PRN 10 Days #15 PRN Reason: Pain Home Medications: Ambulatory Orders Nortriptyline HCl 25 mg PO DAILY 06/09/12 Omeprazole [Prilosec] 40 mg PO BID 06/09/12 Tamsulosin [Flomax] 0.4 mg PO BEDTIME 06/09/12 Sitagliptin-Metformin HCl [Janumet 50-1000 mg] 1 tab PO BID 08/25/14 Dutasteride [Avodart] 0.5 mg PO BEDTIME 04/03/18 Naproxen Sodium [Anaprox Ds] 550 mg PO PRN 04/03/18 Tiotropium [place] Monohydrate [Spiriva Handihaler] 1 puff IN BEDTIME 04/03/18 Dicyclomine HCl [Dicyclomine Hydrochloride] 20 mg PO Q6HR PRN 07/07/18 Promethazine HCl 25 mg PO Q6HR PRN 07/07/18 Metoclopramide Tab [Reglan Tab] 5 mg PO Q8HRS PRN #10 tab 07/08/18 Promethazine HCl 25 mg ID Q4HR PRN #12 sup 07/08/18 Acetaminophen W/ Codeine [Tylenol W/ CODEINE #3] 1 ea PO Q6H PRN 10 Days #15 11/27/19 Additional Instructions: Keep the splint in place and no weightbearing to the left lower extremity until cleared by Ortho. Follow-up with orthopedic surgery in the clinic in the next 1 week for repeat evaluation. Continue to keep the leg elevated and apply a cold pack to the affected area as needed to help reduce pain and swelling. You may also continue to take [id number] medication such as ibuprofen 600 mg every 6 hours and Tylenol 650 mg every 6 hours as needed for pain. You may take the Tylenol 3 as directed for breakthrough pain. Do not drive or operate heavy machinery while taking this medication. Follow-up with your regular doctor as scheduled or sooner as needed.
--- NOTE | 2019-11-27 10:18 | RAD ---
EXAM DESCRIPTION: Ankle,Left 3 Views CLINICAL HISTORY: left ankle injury pain COMPARISON: None. TECHNIQUE: 3 views left FINDINGS: Soft tissue swelling is observed over the lateral malleolus. The ankle mortise is intact. The exam reveals an osteochondral defect on the medial talar dome. Degenerative changes are observed in the medial malleolus. Exam reveals a small old avulsive injury of the lateral malleolus. A fracture of the anterior tibia is observed extending into the tibial plafond and. The injury is nondisplaced. A small ankle joint effusion is evident. A small calcaneal spurs observed. IMPRESSION: 1. A nondisplaced longitudinally oriented fracture of the anterior tibia is observed with extension through the tibial plafond. 2. Osteochondral defect is observed in the medial talar dome. Electronically signed by: Richard Young MD 11/27/2019 10:16 AM CDT
[2019-11-27] MEDS: HYDROcodone 10MG/APAP 325MG 1 EA TAB PO ONE (10:34)
[2019-11-27] MEDS: KETOROLAC TROMETHAMINE INJ 60 MG/2 ML VIAL IM ONE (10:34)
--- NOTE | 2019-11-27 10:34 | RAD ---
EXAM DESCRIPTION: Foot,Left 3 Views CLINICAL HISTORY: 54 years, Male, fall, L heel pain COMPARISON: None TECHNIQUE: AP, lateral, and oblique views of the left foot FINDINGS: Metatarsus premise varus is noted with mild hallux valgus. Degenerative narrowing of the first metatarsal phalangeal joint. Mild degenerative narrowing of the joints of toes. No fracture of the bones of the toes or of the metatarsals. No midfoot malalignment. Lateral view shows intact talus. Mild irregularity of the plantar surface of the calcaneus. A nondisplaced fracture cannot be excluded and CT of the ankle and hindfoot is recommended. In addition, coronally oriented fracture through the distal tibia is seen extending into the ankle joint. The gap at the fracture site of the distal tibia is 4 mm. IMPRESSION: Fractured distal left tibia with extension into the ankle joint. Questionable appearance of the plantar surface of the calcaneus. Nondisplaced fracture not excluded here. See above. Electronically signed by: Joseph Tran MD 11/27/2019 10:33 AM CDT
--- NOTE | 2019-11-27 12:05 | CT ---
EXAM DESCRIPTION: Lower Extremity CLINICAL HISTORY: 54 years Male, Left ankle and foot, Left heel injury TECHNIQUE: This exam was performed according to our departmental dose-optimization program, which includes automated exposure control, adjustment of the mA and/or kV according to patient size and/or use of iterative reconstruction technique. COMPARISON: Same day radiographs FINDINGS: Linear nondisplaced fracture of the posterior plantar surface of the calcaneus. Transverse comminuted intra-articular fracture of the distal tibia. 1 mm intra-articular step-off. 2 mm intra-articular gap medially. The fracture plane extends to the syndesmosis. No other fracture is identified. No dislocation. Lisfranc alignment is maintained. Soft tissue swelling is present about the ankle. Osteochondral lesion of the medial talar dome measuring 1.1 cm. IMPRESSION: 1. Comminuted intra-articular fracture of the distal left tibia. 2. Linear nondisplaced posterior calcaneal fracture. Electronically signed by: Fabrice Astorga MD 11/27/2019 12:04 PM CDT
[2019-11-27 15:19] VITALS: O2SAT 98
[2019-11-27 15:26] VITALS: BP 113/72
[2019-11-27 15:27] VITALS: TEMP 98.2
== END 2019-11-27 14:00 | disposition home or self-care (01) ==
LOC: ER 09:52
DX: S82.392A Other fracture of lower end of left tibia, initial encounter for closed fracture (principal); S92.002A Unspecified fracture of left calcaneus, initial encounter for closed fracture; E11.9 Type 2 diabetes mellitus without complications; F17.200 Nicotine dependence, unspecified, uncomplicated; W17.89XA Other fall from one level to another, initial encounter; Y92.89 Other specified places as the place of occurrence of the external cause; Y99.0 Civilian activity done for income or pay
CPT/HCPCS: 73610; 73630; 73700; J1885

== ENCOUNTER → 2019-12-08 | Outpatient (CLI) | payer BC ==
--- NOTE | 2019-12-08 10:16 | RAD ---
3 radiographs left ankle. 2 radiographs left calcaneus Indication: CLOSED FRACTURE DISTAL TIBIA LEFT Comparison: November 27, 2019 Impression: Distal tibial fracture and posterior calcaneal fracture redemonstrated with stable alignment. The fracture planes are slightly less distinct consistent with a component of progressive healing. The fractures however remain incompletely united at this time. Casting material present. No new complicating features identified. Electronically signed by: Alfie Zuniga MD 12/08/2019 10:15 AM CDT
== END ==
LOC: RAD 08:00
PROVIDERS: ATTEND Orthopaedic Surgery
DX: S82.302D Unspecified fracture of lower end of left tibia, subsequent encounter for closed fracture with routine healing (principal); S92.002D Unspecified fracture of left calcaneus, subsequent encounter for fracture with routine healing

== ENCOUNTER → 2019-12-21 | Outpatient (CLI) | payer BC ==
--- NOTE | 2019-12-21 12:25 | RAD ---
EXAM DESCRIPTION: Left ankle, 3 radiographs CLINICAL HISTORY: BIMALLEOLAR FX FINDINGS/ IMPRESSION: Comparison 12/08/2019 calcaneal radiograph Overlying casting obscures bony detail. Fracture of the tibia epiphysis and metaphysis with intra-articular extension along the anterior to mid plafond. Fibular fracture previously demonstrated on CT not as well seen by radiograph, involving the distal fibular epiphysis. Ankle mortise is symmetric Chronic osteochondral lesion of the apex medial talar dome measures about 1.4 cm transverse with subchondral cystic change accounting for the lucency Electronically signed by: Arsalan Loco MD 12/21/2019 12:24 PM CDT
== END ==
LOC: RAD 08:44
PROVIDERS: ATTEND Orthopaedic Surgery
DX: S82.854D Nondisplaced trimalleolar fracture of right lower leg, subsequent encounter for closed fracture with routine healing (principal); M93.272 Osteochondritis dissecans, left ankle and joints of left foot

== ENCOUNTER → 2020-01-04 | Outpatient (CLI) | payer BC ==
--- NOTE | 2020-01-04 12:35 | RAD ---
Study: Three views of the Left Ankle. Indication: BIMALLEOLAR FRACTURE OF ANKLE LEFT Comparison: December 21, 2019 Impression: Casting material present about the ankle. The previously noted comminuted distal tibial fracture redemonstrated and incompletely united at this time. The fracture of the posterior margin of the calcaneus is faintly visualized and likely incompletely united as well. The distal fibular epiphyseal fracture is not visualized. No appreciable new fracture. Chronic osteochondral lesion of the medial margin talar dome redemonstrated. Electronically signed by: Alfie Zuniga MD 01/04/2020 12:33 PM CDT
== END | disposition home or self-care (01) ==
LOC: RAD 07:49
PROVIDERS: ATTEND Orthopaedic Surgery
DX: S82.842D Displaced bimalleolar fracture of left lower leg, subsequent encounter for closed fracture with routine healing (principal)

== ENCOUNTER → 2020-01-25 | Outpatient (CLI) | payer BC ==
--- NOTE | 2020-01-25 13:57 | RAD ---
EXAM DESCRIPTION: Ankle,Left 3 Views CLINICAL HISTORY: 54 years, Male, CLOSED BIMALLEOLAR FRACTURE OF LEFT ANKLE COMPARISON: Right ankle radiograph most recent dated 01/04/2020. CT 11/27/2019. TECHNIQUE: AP/lateral/oblique of the left ankle. The radiographs are mislabeled as right sided. FINDINGS/IMPRESSION: Images of the left ankle redemonstrate a longitudinal intra-articular fracture of the anterior tibial plafond with stable osseous alignment. The fracture lucency persists and is without significant bridging callus formation suggesting suboptimal healing. Healing calcaneal tuberosity nondisplaced fracture with callus formation and decreasing fracture lucency. Chronic medial talar dome osteochondral defect appears unchanged. Small chronic medial the and lateral malleolus bony avulsions, unchanged. Electronically signed by: Narciso Godoy DO 01/25/2020 1:54 PM CDT
== END ==
LOC: RAD 08:08
PROVIDERS: ATTEND Orthopaedic Surgery
DX: S82.845D Nondisplaced bimalleolar fracture of left lower leg, subsequent encounter for closed fracture with routine healing (principal); S92.045D Nondisplaced other fracture of tuberosity of left calcaneus, subsequent encounter for fracture with routine healing; M95.8 Other specified acquired deformities of musculoskeletal system

== ENCOUNTER → 2020-02-22 | Outpatient (CLI) | payer BC ==
--- NOTE | 2020-02-22 10:47 | RAD ---
EXAM DESCRIPTION: Ankle x-ray Left 3 Views CLINICAL HISTORY: 54 years, Male, CLOSED BIMALLEOLAR FRACTURE OF LEFT ANKLE COMPARISON: None. TECHNIQUE: AP/lateral/oblique of the left ankle FINDINGS: The lateral view the ankle shows coronally oriented fracture through the distal tibia extending into the ankle joint. On the previous study, the gap at the fracture site extending into the joint space measured approximately 4 mm. This now measures 2.5 mm consistent with partial healing. No step-off at the articular surface of the tibial plafond and is evident on the lateral view. Talus appears intact. Improved appearance of the calcaneus consistent with healed fracture. No midfoot malalignment. Frontal view shows degenerative spurring at the medial malleolar tip and along the medial aspect of the talus. Osteochondral lesion of the medial aspect of the talar dome could be osteochondral fracture or degenerative subchondral cyst formation. This was present on the previous study as well. IMPRESSION: Fracture distal left tibia extends into the ankle joint with partial healing compared to previous. Improved appearance of calcaneus consistent with healed fracture. Electronically signed by: Joseph Tran MD 02/22/2020 10:45 AM CDT
== END ==
LOC: RAD 07:49
PROVIDERS: ATTEND Orthopaedic Surgery
DX: S82.842G Displaced bimalleolar fracture of left lower leg, subsequent encounter for closed fracture with delayed healing (principal)

== ENCOUNTER → 2020-03-03 | Outpatient (CLI) | payer BC ==
--- NOTE | 2020-03-04 09:54 | MRI ---
EXAM DESCRIPTION: Lumbar Spine w/o Contrast : Magnetic Resonance Imaging. CLINICAL HISTORY: CHRONIC LOW BACK PN COMPARISON: LUMBAR TECHNIQUE: Multiplanar, multiple standard sequences, non contrast MRI, lumbar spine. FINDINGS: L5-S1: The disc is well visualized on axial T2 series 501, image 3. Normal signal in the disc. Posterior disc space loss. Small posterior midline disc bulge. CSF extends into the proximal right S1 nerve sheath. 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 Hypertrophic changes in the left facet joint and ligamentum flavum more than right (canal elements. No canal stenosis. Moderate narrowing of the right foramen and mild narrowing of the left. L4-L5: Disc desiccation and moderate disc space loss with anterior bulging and spurs. Minimal posterior broad-based bulge. Hypertrophic changes on the canal elements. AP canal diameter normal. Bilateral borderline foraminal stenosis. L3-L4: Disc desiccation and posterior disc space loss with moderate endplate reactive changes. Posterior small midline bulge. Mild hypertrophic changes in the canal elements. Mild canal narrowing. Mild to moderate narrowing left foramen and moderate narrowing of the right foramen. L2-L3: Disc desiccation and minimal disc space loss. Posterior midline hyperintense T2 annular fissure. Hypertrophic changes in the canal elements. Mild canal narrowing. L1-L2: Normal signal in the disc with disc space maintained. Small concavities in the inferior L1 endplate. No posterior bulging. Canal elements unremarkable. Canal and foramina are patent. T12-L1: Normal signal in the disc with disc space maintained. Small concavities in the inferior T12 endplate. Canal elements unremarkable. Canal and foramina are patent. Conus terminates at T12. Patient tilted in the scan but no scoliosis. Paravertebral soft tissues negative. Distal cord normal signal and caliber. Normal marrow signal in the remaining vertebral bodies and the posterior elements. Vertebral bodies are not compressed at any level. IMPRESSION: 1. Right posterior small disc bulge L5-S1 abutting the right subarticular recess and the right S1 nerve. Large nerve root sheath containing CSF in the right S1 nerve. No definite compression. Anomalous bilateral L5 lamina. Moderate narrowing of the right foramen. 2. Bilateral L4-L5 disc bulging and endplates encroaching on the foramina with borderline stenosis. Correlate for bilateral L4 radiculopathy. 3. Posterior midline L2-L3 disc margin annular fissure. 4. Please refer to FINDINGS for discussion of results at other disc space levels. Electronically signed by: Neville Maier MD 03/04/2020 9:53 AM CDT
== END ==
LOC: MRI 09:41
PROVIDERS: ATTEND Orthopaedic Surgery
DX: M51.87 Other intervertebral disc disorders, lumbosacral region (principal); M48.061 Spinal stenosis, lumbar region without neurogenic claudication; G96.09 Other spinal cerebrospinal fluid leak; M51.36 Other intervertebral disc degeneration, lumbar region; M43.9 Deforming dorsopathy, unspecified

== ENCOUNTER → 2020-03-21 | Outpatient (CLI) | payer BC ==
--- NOTE | 2020-03-21 13:34 | RAD ---
EXAM DESCRIPTION: Ankle,Left 3 Views CLINICAL HISTORY: 54 years Male, BIMALLEOLAR FX COMPARISON: 02/22/2020 Findings: 3 view(s)/radiograph(s) Unchanged alignment of the intra-articular distal left tibial fracture. No new fracture identified. Healing calcaneal fracture posteriorly. No dislocation. Similar appearance of the talar dome. The ankle mortise is symmetric. Similar degenerative changes. IMPRESSION: Unchanged distal left tibial fracture. Healing posterior calcaneal fracture. Electronically signed by: Fabrice Astorga MD 03/21/2020 1:32 PM [facility]
== END ==
LOC: RAD 07:43
PROVIDERS: ATTEND Orthopaedic Surgery
DX: S82.842D Displaced bimalleolar fracture of left lower leg, subsequent encounter for closed fracture with routine healing (principal); S92.009D Unspecified fracture of unspecified calcaneus, subsequent encounter for fracture with routine healing

== ENCOUNTER → 2020-04-21 | Outpatient (CLI) | payer BC | LOC: GMA CAST 17:26 | PROVIDERS: ATTEND Family Medicine Sports Medicine | DX: Z79.899 Other long term (current) drug therapy (principal); E78.2 Mixed hyperlipidemia ==